=== PATIENT | male | born 1990 | race Caucasian/White ===

== ENCOUNTER 2022-11-16 10:37 | Emergency (ER) | payer SELFPAY ==
[~2022-11-16] VITALS: Ht 170.2 cm; Wt 86.0 kg
[2022-11-16 10:54] VITALS: BP 127/88
[2022-11-16] MEDS ORDERED: NEOM28.43 TP (11:00)
== END 2022-11-16 11:09 | disposition home or self-care (01) ==
LOC: ER 10:37
DX: Z48.02 Encounter for removal of sutures (principal)
CPT/HCPCS: 99282